=== PATIENT | male | born 1985 | race Caucasian/White ===

== ENCOUNTER 2017-04-03 09:55 | Emergency (ER) | payer SELFPAY ==
[~2017-04-03] VITALS: Ht 167.6 cm; Wt 70.0 kg
[2017-04-03 10:01] VITALS: Ht 167.6 cm; Wt 70.0 kg
== END 2017-04-03 10:25 | disposition left against medical advice (07) ==
LOC: E/R 09:55
DX: Z53.21 Procedure and treatment not carried out due to patient leaving prior to being seen by health care provider (principal)

== ENCOUNTER 2017-04-03 20:15 | Emergency (ER) | payer OTHER ==
[~2017-04-03] VITALS: Ht 172.7 cm; Wt 90.0 kg
[2017-04-03 20:49] VITALS: Ht 172.7 cm; Wt 90.0 kg
[2017-04-03] MEDS ORDERED: KETOROLAC 30 MG INJ IV STA (23:08)
[2017-04-03] MEDS ORDERED: SOD CHLORIDE 0.9% 1,000 ML IV STA (23:08)
--- NOTE | 2017-04-03 23:26 | ERD ---
ER Documentation Chief Complaint Date/Time DATE: 04/03/17 TIME: 23:24 Chief Complaint C/O TESTICLE PAIN +SWELLING SINCE 4PM TODAY. TOOK VALIUM AND GABAPENTIN HPI 31-year-old male presents to emergency department for complaints of right testicular pain that started at 4 PM today. Patient describes the pain as sharp pain, 8/10 scale, as was upon movement. Patient denies any trauma in affected area. Patient denies any fever chills. Patient denies any hematuria. Patient denies any penile discharge. Patient denies any new sexual partners. Patient did not take any medications for pain. ROS All systems reviewed and are negative except as per history of present illness. Medications Home Meds Reported Medications [none] Unknown Strength No Conflict Check 04/03/17 Allergies Allergies: Coded Allergies: No Known Drug Allergy (Verified Allergy, Unknown, 04/03/17) PMhx/Soc History of Surgery: Yes (tonsillectomy, adenoidectomy, ) Anesthesia Reaction: No Hx Neurological Disorder: No Hx Respiratory Disorders: No Hx Cardiac Disorders: No Hx Psychiatric Problems: No Hx Miscellaneous Medical Probl: No (bronchitis, epididymis tail kinked before) Hx Alcohol Use: Yes Hx Substance Use: Yes Hx Tobacco Use: Yes Smoking Status: Current every day smoker FmHx Family History: No coronary disease, No diabetes, No other Physical Exam Vitals Vital Signs Date Time Temp Pulse Resp B/P Pulse Ox O2 Delivery O2 Flow Rate FiO2 04/03/17 20:49 98.4 98 20 144/100 99 Physical Exam GENERAL: The patient is well developed and appropriate for usual state of health, in no apparent distress. CHEST: Clear to auscultation bilaterally. There are no rales, wheezes or rhonchi. HEART: Regular rate and rhythm. No murmurs, clicks, rubs or gallops. No S3 or S4. ABDOMEN: Soft, nontender and nondistended. Good bowel sounds. No rebound or guarding. No gross peritonitis. No gross organomegaly or masses. No Arreola sign or McBurney point tenderness. BACK: No midline or flank tenderness. EXTREMITIES: Equal pulses bilaterally. There is no peripheral clubbing, cyanosis or edema. No focal swelling or erythema. Full range of motion. Grossly neurovascularly intact. NEURO: Alert and oriented. Cranial nerves 2-12 intact. Motor strength in all 4 extremities with 5/5 strength. Sensation grossly intact. Normal speech and gait. SKIN: There is no apparent rash or petechia. The skin is warm and dry. HEMATOLOGIC AND LYMPHATIC: There is no evidence of excessive bruising or lymphedema. No gross cervical, axillary, or inguinal lymphadenopathy. : Right testicular tenderness noted, no swelling noted, no erythema noted. No penile discharge. No lesions noted. Left testicle is normal. Result Diagram: 04/03/17 2330 04/03/17 2330 Results 24 hrs Laboratory Tests Test 04/03/17 23:10 04/03/17 23:30 Urine Color YELLOW Urine Clarity CLEAR Urine pH 5.0 Urine Specific [place] 1.031 Urine Ketones NEGATIVEmg/dL Urine Nitrite NEGATIVEmg/dL Urine Bilirubin 1+mg/dL Urine Urobilinogen 1+mg/dL Urine Leukocyte Esterase NEGATIVELeu/ul Urine Hemoglobin NEGATIVEmg/dL Urine Glucose NEGATIVEmg/dL Urine Total Protein NEGATIVEmg/dl White Blood Count 11.510^3/ul Red Blood Count 4.2810^6/ul Hemoglobin 11.6g/dl Hematocrit 36.7% Mean Corpuscular Volume 85.7fl Mean Corpuscular Hemoglobin 27.1pg Mean Corpuscular Hemoglobin Concent 31.6g/dl Red Cell Distribution Width 15.2% Platelet Count 26208^3/UL Mean Platelet Volume 10.5fl Neutrophils % 49.6% Lymphocytes % 34.6% Monocytes % 9.9% Eosinophils % 4.4% Basophils % 1.0% Nucleated Red Blood Cells % 0.0/100WBC Neutrophils # 5.710^3/ul Lymphocytes # 4.010^3/ul Monocytes # 1.110^3/ul Eosinophils # 0.510^3/ul Basophils # 0.110^3/ul Nucleated Red Blood Cells # 0.010^3/ul Sodium Level 137mmol/L Potassium Level 4.0mmol/L Chloride Level 106mmol/L Carbon Dioxide Level 26mmol/L Anion Gap 9 Blood Urea Nitrogen 17mg/dl Creatinine 0.80mg/dl Glucose Level 115mg/dl Calcium Level 8.8mg/dl Total Bilirubin 0.0mg/dl Direct Bilirubin 0.00mg/dl Indirect Bilirubin 0.0mg/dl Aspartate Amino Transf (AST/SGOT) 47IU/L Alanine Aminotransferase (ALT/SGPT) 71IU/L Alkaline Phosphatase 70IU/L Total Protein 7.0g/dl Albumin 3.4g/dl Globulin 3.60g/dl Albumin/Globulin Ratio 0.94 Lipase 43U/L Current Medications Medications (Trade) Dose Ordered Sig/Ronit Route PRN Reason Start Time Stop Time Status Last Admin Dose Admin Sodium Chloride (NS) 1,000 ml @ 1,000 mls/hr Q1H STAT IV 04/03/17 23:08 04/04/17 00:07 DC 04/03/17 23:38 Ketorolac Tromethamine (Toradol) 30 mg ONCE STAT IV 04/03/17 23:08 04/03/17 23:10 DC 04/03/17 23:37 Morphine Sulfate (morphine) 8 mg ONCE ONCE IV 04/04/17 00:00 04/04/17 00:02 DC 04/04/17 00:08 Patient was given medication for pain here in emergency department, after treatment, patient verbalized feeling much better. Patient's pain is improved. Normal saline IV bolus was given here in emergency department for rehydration, patient tolerated IV fluids. ROCEDURE: US Scrotum. CLINICAL INDICATION: Right testicular pain rule out testicular torsion TECHNIQUE: Multiple sonographic images of the scrotal region were obtained utilizing a linear array transducer with grayscale and color-flow Doppler imaging. The images were reviewed on a high-resolution PACS workstation. COMPARISON: No prior studies are available for comparison. FINDINGS: Very limited examination. Visualized limited images of bilateral testes are unremarkable. Color flow Doppler ultrasound demonstrates vascular flow in both testes on the submitted images. The patient could not continue with the examination due to pain. IMPRESSION: Very limited and incomplete examination. Color flow Doppler ultrasound demonstrates vascular flow in both testes on the submitted images. The patient could not continue with the examination due to pain. Discussed with Physician Expense Analyst Luciana at 12:18 a.m. on 04/04/2017. RPTAT: HJES .Freddie Collier MD, MD Date Time Electronically viewed and signed by .Freddie Collier MD, on 04/04/2017 00:23 .S/ CC: MAICO LEÓN NP Procedures/MDM Medical decision making: Patient has testicular pain, ultrasound was done, was suboptimal since patient was refusing to have it done more because the pain, patient was medicated for pain, was already taking Valium at home, was given IV morphine here in emergency department, but ultrasound review, it was suboptimal but there is no symptoms of any testicular torsion, I ordered for more testing including CT scan of the abdomen and pelvis, patient refuses this exam and elopes, walk out of the emergency department ambulating and steady gait. Patient was saying that he wants more pain medication patient was already dozing off after taking the Valium and IIIa given IV morphine, explained to patient that since he is taking his volume and was given a high dose of morphine , for safety purposes, he cannot give him something much more stronger, patient has history of IV drug use from before and is demanding more pain medication, walks out of the emergency department, I was able to discuss the ultrasound readings with the radiologist, even though it was suboptimal, there is low risk for testicular torsion. He walked out of the ER with steady comfortable gait and not in distress or pain. Considering normal ольга, normal blood test results and physical exam before leaving, patient most likely is drug seeking, considering his history of IV drug use. Disposition: Eloped Stable Departure Diagnosis: Primary Impression: Pain in testicle Condition: Stable MAICO LEÓN NP Apr 03, 2017 23:26
[2017-04-03 23:59] LABS: BASOPHIL # 0.1 10^3/ul (0.0-0.1); EOSINOPHILS # 0.5 10^3/ul (0.0-0.5); EOSINOPHILS % 4.4 % (0.0-7.0); HEMATOCRIT 36.7 % (42.0-52.0); HEMOGLOBIN 11.6 g/dl (14.0-18.0); LYMPHOCYTES % 34.6 % (15.0-51.0); MEAN CORPUSCULAR HEMOGLOBIN 27.1 pg (29.0-33.0); MEAN CORPUSCULAR HGB CONC 31.6 g/dl (32.0-37.0); MEAN CORPUSCULAR VOLUME 85.7 fl (82.0-101.0); MEAN PLATELET VOLUME 10.5 fl (7.4-10.4); MONOCYTE # 1.1 10^3/ul (0.3-0.9); MONOCYTES % 9.9 % (0.0-11.0); NEUTROPHIL # 5.7 10^3/ul (1.6-7.5); NEUTROPHILS % 49.6 % (39.0-77.0); PLATELET COUNT 239 10^3/UL (140-415); RED BLOOD COUNT 4.28 10^6/ul (4.70-6.10); RED CELL DISTRIBUTION WIDTH 15.2 % (11.5-14.5); WHITE BLOOD COUNT 11.5 10^3/ul (4.8-10.8)
[2017-04-04] MEDS ORDERED: morphine 10 MG INJ IV ONE
--- NOTE | 2017-04-04 00:23 | RADRPT ---
PROCEDURE: US Scrotum. CLINICAL INDICATION: Right testicular pain rule out testicular torsion TECHNIQUE: Multiple sonographic images of the scrotal region were obtained utilizing a linear arra y transducer with grayscale and color-flow Doppler imaging. The images were reviewed on a high-resol [employer] PACS workstation. COMPARISON: No prior studies are available for comparison. FINDINGS: Very limited examination. Visualized limited images of bilateral testes are unremarkable. Color flow Doppler ultrasound demonstrates vascular flow in both testes on the submitted images. The patient c ould not continue with the examination due to pain. IMPRESSION: Very limited and incomplete examination. Color flow Doppler ultrasound demonstrates vascular flow in both testes on the submitted images. The patient could not continue with the examination due to jing n. Discussed with Physician Automation Specialist Luciana at 12:18 a.m. on 04/04/2017. RPTAT: HJES .Freddie Collier MD, Date Time Electronically viewed and signed by .Freddie Collier MD, on 04/04/2017 00:23 .S/
[2017-04-04 00:27] LABS: ALBUMIN 3.4 g/dl (3.3-4.9); ALBUMIN/GLOBULIN RATIO 0.94; CALCIUM 8.8 mg/dl (8.4-10.2); CREATININE 0.8 mg/dl (0.61-1.24)
[2017-04-04 00:28] LABS: ADD UMIC NO; UR ASCORBIC ACID 20 mg/dL (NEGATIVE); UR BILIRUBIN (Dip) 1+ mg/dL (NEGATIVE); UR BLOOD (Dip) NEGATIVE (NEGATIVE); UR CLARITY CLEAR (CLEAR); UR COLOR YELLOW (YELLOW); UR GLUCOSE (Dip) NEGATIVE (NEGATIVE); UR KETONES (Dip) NEGATIVE (NEGATIVE); UR LEUKOCYTE ESTERASE (Dip) NEGATIVE Leu/ul (NEGATIVE); UR NITRITE (Dip) NEGATIVE (NEGATIVE); UR SPECIFIC GRAVITY (Dip) 1.031 (1.003-1.030); UR TOTAL PROTEIN (Dip) NEGATIVE (NEGATIVE); UR UROBILINOGEN (Dip) 1+ mg/dL (NEGATIVE)
--- NOTE | 2017-04-04 01:55 | RADRPT ---
PROCEDURE: ULTRASOUND TESTICULAR April 04, 2017 at 12:57 a.m. CLINICAL INDICATION: 31-year-old male with testicular pain. This is examination since the first st udy was limited secondary to pain. TECHNIQUE: Multiple sonographic images of the scrotal region were obtained utilizing a linear arra y transducer with grayscale and color-flow and a Doppler imaging. The images were reviewed on a high -resolution PACS workstation. COMPARISON: Ultrasound testicular April 03, 2017 at 11:55 p.m.. FINDINGS: The right testicle is well visualized and has a normal echotexture. No focal areas of abnormal echog enicity are visualized. The right testicle measures 5.2 x 2.6 x 2.7 cm. There is normal color-flow. The right epididymis is visualized and measures approximately measures 17 x 9 mm. There is normal co henny-flow. The left testicle is well visualized and has a normal echotexture. No focal areas abnormal echogenic ity are visualized. The left testicle measures 4.7 x 2.4 x 3.6 cm. There is normal color-flow. The l eft epididymis is visualized and measures approximately measures 10 x 8 mm. There is normal color-fl ow. There is mild left-sided hydrocele. IMPRESSION: 1. No sonographic evidence for testicular torsion. 2. Mild left-sided hydrocele. .Amandeep Dotson MD, MD Date Time Electronically viewed and signed by .Amandeep Dotson MD, on 04/04/2017 01:55 .M/
== END 2017-04-04 01:32 | disposition left against medical advice (07) ==
LOC: FTE 20:15
DX: N50.811 Right testicular pain (principal); F17.210 Nicotine dependence, cigarettes, uncomplicated
CPT/HCPCS: 36415; 76870; 80053; 81003; 83690; 85025; 96374; 96375; J1885; J2270; J7030; Z7502